=== PATIENT | female | born 1965 | race Caucasian/White ===

== ENCOUNTER 2018-10-22 08:51 | Day surgery (SDC) | payer BC ==
--- NOTE | 2018-10-20 11:18 | PREOPHP ---
DATE OF ADMISSION: 10/22/2018 Scheduled for surgery 10/22/2018. HISTORY OF PRESENT ILLNESS: The patient is a 53-year-old female in overall stable health who underwent bilateral mastectomy with silicone implants in 2017 for carcinoma of the left breast and ductal carcinoma in situ of the right breast, 1/5 left axillary lymph nodes were positive for metastatic cancer. She underwent nipple-sparing mastectomy. She has had no treatment since that time. Recently, she has become aware of the enlarged left axillary lymph nodes. MRI performed revealed bilateral silicone implants, which were intact and two abnormal left axillary lymph nodes. PET CT scan revealed hypermetabolic left axillary lymph nodes. She is scheduled to undergo a left axillary lymph node dissection. PAST MEDICAL HISTORY MEDICATIONS: None. ALLERGIES: CODEINE CAUSES SIDE EFFECTS. OPERATION: In addition to the above 30 years ago she underwent repair of anterior cruciate ligament, left knee. PHYSICAL EXAMINATION: GENERAL: The patient is 5 feet 8 inches, 156 pounds. Stable vital signs. HEENT: Within normal limits. LUNGS: Clear. HEART: Regular rhythm. BREASTS: The breasts are large with bilateral implants. There is no evidence of chest wall recurrence of breast cancer. There is no supraclavicular or right axillary lymphadenopathy. Examination of the left axilla reveals a 3.2 cm node and one smaller node that appears fixed to the chest wall. ABDOMEN: Soft. PELVIC AND RECTAL: Per primary care. EXTREMITIES: Without edema. NEUROLOGIC: Physiologic. ASSESSMENT: Left axillary lymphadenopathy, status post surgery for carcinoma left breast in 2017. PLAN: Left axillary lymph node dissection including Oncotype and MammaPrint. I had a full discussion with the patient regarding the nature of her condition and the nature of the surgery, indications, alternatives, options and risks including bleeding, infection, injury to adjacent structures or organs, neuritis or neuralgia, need for a drain, need for additional procedures based on final pathology, et cetera. All questions have been answered. She also understands the risks of left arm swelling. Dictated By: WAN BULLOCK/FAVIO Conf#: [id number] DID#: [id number] MTDD
[2018-10-22] VITALS (30 sets, daily range): BP systolic 88–122; BP diastolic 54–69; PULSE 46–76; RESP 10–29; Ht 172.7 cm; Wt 70.5 kg
[~2018-10-22] VITALS: Ht 172.7 cm; Wt 70.5 kg
[2018-10-22] MEDS ORDERED: SOD CHLORIDE 0.9% 1,000 ML IV ONE (09:00)
[2018-10-22] MEDS ORDERED: CEFAZOLIN 1 GM/50 ML (PMX) 50 ML IVPB ONE (09:00)
[2018-10-22] MEDS ORDERED: PROPOFOL 20 ML ONE (09:04)
[2018-10-22] MEDS ORDERED: CEFAZOLIN 1 GM INJ ONE (09:04)
[2018-10-22] MEDS ORDERED: KETOROLAC 30 MG INJ ONE (09:05)
[2018-10-22] MEDS ORDERED: MIDAZOLAM 1 MG/ML 2 ML INJ ONE (09:05)
[2018-10-22] MEDS ORDERED: ONDANSETRON 4 MG INJ ONE (09:05)
--- NOTE | 2018-10-22 09:52 | PREAC ---
Date/Time of Note Date/Time of Note DATE: 10/22/18 TIME: 09:49 Anesthesia Eval and Record Evaluation Time Pre-Procedure Interview DATE: 10/22/18 TIME: 09:49 Age 53 Sex female NPO: 8 hrs Preoperative diagnosis Enlarged Lymphnode L. axillary Planned procedure Excision Lymphnode L. Axillary Past Medical History Past Medical History: Includes Infection(s): Other (Breast Cancer) Surgery & Anesthesia Issues No known issue Meds Anticoagulation: No Beta Nola within 24 hr: No Reason Beta Nola not given: Pt. not on B-Nola Current Medications Sodium Chloride 1,000 ml @ 75 mls/hr [id number] ONCE IV ; Start 10/22/18 at 09:00; Stop 10/22/18 at 22:19 Meds reviewed: Yes Allergies Coded Allergies: codeine (Verified Allergy, Unknown, 10/21/18) Allergies Reviewed: Yes Labs/Studies Labs Reviewed: Reviewed by anesthesiologist test: Negative Pre-procedure Exam Last vitals Vital Signs Date Temp Pulse Resp B/P (MAP) Pulse Ox O2 O2 Flow FiO2 Time Delivery Rate 10/22/18 97.3 71 16 116/69 100 Room Air 09:35 (85) Airway: Adequate mouth opening Mallampati: Mallampati II Teeth: Normal Lung: Normal Heart: Normal ASA Physical Status ASA physical status: 2 Emergency: None Planned Anesthetic General/MAC: LMA Pre-operative Attestations Prior to commencing anesthesia and surgery, the patient was re-evaluated, there was verification of: *The patient's identity *The results of appropriate recent lab work and preoperative vital signs *The above evaluation not changing prior to induction *Anesthetic plan, risk benefits, alternative and complications discussed with patient/family; questions answered; patient/family understands, accepts and wishes to proceed. KEREN MACIAS MD Oct 22, 2018 09:52
[2018-10-22] MEDS ORDERED: FENTAnyl 50 MCG/ML VIAL IV PRN ×2 (10:00)
[2018-10-22] MEDS ORDERED: ONDANSETRON 4 MG INJ IV PRN ×2 (10:00→13:30)
--- NOTE | 2018-10-22 11:40 | HPN ---
Date/Time of Note Date/Time of Note DATE: 10/22/18 TIME: 11:40 Interval H&P Admission Note Pt. seen H&P reviewed: No system changes WAN DIANA Oct 22, 2018 11:40
--- NOTE | 2018-10-22 13:15 | PAC ---
Date/Time of Note Date/Time of Note DATE: 10/22/18 TIME: 13:15 Post-Anesthesia Notes Post-Anesthesia Note Last documented vital signs Vital Signs Date Temp Pulse Resp B/P (MAP) Pulse Ox O2 O2 Flow FiO2 Time Delivery Rate 10/22/18 97.3 71 16 116/69 100 Room Air 09:35 (85) Activity: WNL Respiratory function: WNL Cardiovascular function: WNL Mental status: Baseline Pain reasonably controlled: Yes Hydration appropriate: Yes Nausea/Vomiting absent: Yes KEREN MACIAS MD Oct 22, 2018 13:15
--- NOTE | 2018-10-22 13:23 | SIPON ---
Date/Time of Note Date/Time of Note DATE: 10/22/18 TIME: 13:22 Operative Report Preoperative Diagnosis metastatic breast cancer to left axillary lymph noded Postoperative Diagnosis same Operation/Procedure Performed left axillary lymph node dissection Surgeon see signature line research program assistant none Anesthesia: general Estimated blood loss: minimal Transfusion Required none Specimen left axillary lymph nodes Grafts/Implants none Complications none WAN DIANA Oct 22, 2018 13:23
[2018-10-22] MEDS ORDERED: HYDROmorphONE 0.5 MG/0.5 ML SYG SC PRN (13:30)
[2018-10-22] MEDS ORDERED: DIPHENHYDRAMINE 25 MG CAP PO PRN (13:30)
[2018-10-22] MEDS ORDERED: HYDROCODONE/APAP (5/325) TAB PO PRN (13:30)
[2018-10-22] MEDS: CEFAZOLIN 2 GM/50 ML (PMX) 50 ML IVPB SCH ×2 (14:12→22:15)
[2018-10-22] MEDS: D5W-0.45 NACL + KCL 20 MEQ 1,000 ML IV SCH (16:23)
--- NOTE | 2018-10-22 18:31 | OPR ---
DATE OF OPERATION: 10/22/2018 SURGEON: Wan Ponce MD RELIEF DRILLER: None. ANESTHESIOLOGIST: Jonathan Stokes MD TYPE OF ANESTHESIA: General endotracheal. PREOPERATIVE DIAGNOSIS: Recurrent metastatic breast cancer to left axillary lymph nodes. POSTOPERATIVE DIAGNOSIS: Recurrent metastatic breast cancer to left axillary lymph nodes. OPERATION PERFORMED: Left axillary lymph node dissection. INDICATIONS: The patient developed carcinoma of the left breast and ductal carcinoma in situ of the right breast in 2017. She underwent bilateral nipple- sparing mastectomy with immediate reconstruction with silicone implants. Initially, the sentinel node had 1 positive lymph node. She then 10 days later had a lymph node dissection with 5 lymph nodes removed, one of which was positive for metastatic carcinoma. She has had no treatment since. She now presents with palpable, enlarged, somewhat fixed, left axillary lymph nodes with PET CT showing hypermetabolic activity in the left axillary nodes. DESCRIPTION OF PROCEDURE: The patient was taken to the operating room and under general anesthesia with sequential compression device stockings in place, she was prepped and draped in usual fashion. A vertical incision was made, achieving hemostasis with cautery, incising the clavipectoral fascia entering the axilla. The high axilla was unremarkable. There were 3 enlarged hard palpable nodes, one was interpectoral, one was lower level on the chest wall and the other adjacent. There were several smaller nodes. All of these were excised with a dissection using the [employer] electrosurgical device and cautery. The apex of the specimen was marked with a suture for the pathologist. After removing the specimen from the field, the field was irrigated and hemostasis was secured with cautery. Through a separate stab incision inferolaterally, a large flat Kali-Trevino drain was placed into the axilla and sutured to the skin with a 2-0 nylon skin suture and connected to bulb suction. After ascertaining that hemostasis was secured, the incision was closed but it was not possible to close the clavipectoral fascia. The subcutaneous tissues, and deep dermal tissues were closed with interrupted 3-0 Vicryl and the skin was closed with continuous 4-0 Monocryl subcuticular suture. Mastisol and 1/2-inch Steri-Strips were applied followed by dry sterile dressing. Final sponge and needle counts were correct. The patient tolerated the procedure well and left the operating room in good condition. Dictated By: WAN BULLOCK/FAVIO Conf#: [id number] [facility]#: [id number] MTDD
[2018-10-22] MEDS: ACETAMINOPHEN 325 MG TAB PO PRN (21:27)
[2018-10-23] VITALS: BP 86/48; PULSE 53; RESP 16
[2018-10-23] MEDS: D5W-0.45 NACL + KCL 20 MEQ 1,000 ML IV SCH ×2 (02:23→12:13)
[2018-10-23] MEDS: ACETAMINOPHEN 325 MG TAB PO PRN ×2 (02:26→09:45)
[2018-10-23] MEDS: CEFAZOLIN 2 GM/50 ML (PMX) 50 ML IVPB SCH (06:27)
[2018-10-23 07:13] VITALS: BP 94/53; PULSE 68; RESP 18
--- NOTE | 2018-10-24 06:48 | PN ---
DATE: 10/23/2018 Postop day #1 status post left breast axillary dissection for removal of the recurrence of the cancer to the lymph nodes. SUBJECTIVE: No complaint. Has been out of bed and walking around. Pain is under control with Tylenol. No nausea, no vomiting. OBJECTIVE: GENERAL: Awake, alert, oriented. VITAL SIGNS: Temperature maximum 98.9, heart rate 68, respirations 18, blood pressure 94/52 . LABS: No labs have been drawn for today. In the past 24 hours J.P. drain from time of operation till 7:00 a.m. today morning has drained 35 mL of fluid in the tubing is serosanguineous. Dressing is intact. EXTREMITIES: Patient moves left upper extremity full range as well as right upper extremity. The dissection is on the left side. ASSESSMENT AND PLAN: The patient with axillary dissection for removal of the recurrent tumor in the left axillary area, was done by Dr. Ponce yesterday, the patient is currently stable; therefore, the patient can be discharged home today, to be followed by Dr. Sahu in the office next saturday The patient was instructed how to take care of [facility]. The patient was instructed to call Dr. Ponce's office and make an appointment for followup. Dictated By: AURORA MOE/FAVIO Conf#: [id number] DID#: [id number] MTDD
== END 2018-10-23 13:39 | disposition home or self-care (01) ==
LOC: SDS 08:51 → MS1 16:02 → SDS 10-23 13:39
PROVIDERS: ATTEND Surgery
DX: C77.3 Secondary and unspecified malignant neoplasm of axilla and upper limb lymph nodes (principal); C50.912 Malignant neoplasm of unspecified site of left female breast
CPT/HCPCS: 38500; 84703; 88307; J0690; J2250; J3010; J3480; Z7500; Z7512; Z7610; G0378; J1885; J2405

== ENCOUNTER 2018-12-31 06:19 | Day surgery (SDC) | payer BC ==
[2018-12-31 07:38] VITALS: BP 110/60; PULSE 71; RESP 16
[2018-12-31] MEDS ORDERED: CEFAZOLIN 1 GM/50 ML (PMX) 50 ML IVPB SCH (08:30)
[2018-12-31] MEDS ORDERED: LIDOCAINE 1%/EPI 30 ML INJ ONE (08:44)
[2018-12-31] MEDS ORDERED: HEPARIN 1000 UNITS/ML 10 ML INJ ONE (08:45)
[2018-12-31] MEDS ORDERED: POLYMYXIN/BACITRACIN 1L IRRIG IRR ONE (09:00)
[2018-12-31] MEDS ORDERED: CEFAZOLIN 1 GM/50 ML (PMX) 50 ML IVPB ONE (09:40)
[2018-12-31] MEDS ORDERED: FENTAnyl 50 MCG/ML VIAL ONE (09:48)
[2018-12-31] MEDS ORDERED: MIDAZOLAM 1 MG/ML 2 ML INJ ONE (09:48)
[2018-12-31 11:15] VITALS: BP 121/73; PULSE 74; RESP 14
== END 2018-12-31 11:50 | disposition home or self-care (01) ==
LOC: SDS 06:19
PROVIDERS: ATTEND Internal Medicine Hematology & Oncology
DX: C50.912 Malignant neoplasm of unspecified site of left female breast (principal)
CPT/HCPCS: 36561; 76942; J0690; J1644; J2250; J3010; Z7610